=== PATIENT | female | born 1970 | race African-American/Black ===

== ENCOUNTER 2024-02-28 16:13 | Emergency (ER) | payer OTHER ==
[~2024-02-28] VITALS: Ht 162.6 cm; Wt 59.0 kg
[~2024-02-28 16:13] MED LIST: ALBU17AE27 IH
[2024-02-28 16:33] VITALS: TEMP 98.1
[2024-02-28] MEDS ORDERED: 0.9% SODIUM CHLORIDE 5 ML NEB SOLUTION NEB ONE (17:15)
[2024-02-28] MEDS: IPRATROPIUM BROMIDE 0.5 MG/2.5 ML NEB SOLUTION NEB ONE ×2 (17:16→17:17)
[2024-02-28] MEDS: ALBUTEROL SULFATE 2.5 MG/0.5 ML 5 ML NEB SOLUTION NEB ONE (17:17)
[2024-02-28] MEDS: ALBUTEROL SULFATE 2.5 MG/0.5 ML NEB SOLUTION NEB ONE (17:17)
[2024-02-28 17:18] VITALS: PULSE 102; RESP 22; O2SAT 95
[2024-02-28 17:55] LABS: BASOPHILS % (AUTO) 1.3 % (0.0-2.0); HEMATOCRIT 41.8 % (36-46); HEMOGLOBIN 13.1 g/dL (12.0-16.0); LYMPHOCYTES # (AUTO) 1.9 K/uL (1.0-4.8); LYMPHOCYTES % (AUTO) 39.3 % (22.0-44.0); MEAN CORPUSCULAR HEMOGLOBIN 22.6 pg (26.0-34.0); MEAN CORPUSCULAR HGB CONC 31.5 G/dL (31.0-37.0); MEAN CORPUSCULAR VOLUME 72 fL (80-100); MONOCYTES # (AUTO) 0.4 K/uL (0.1-1.0); MONOCYTES % (AUTO) 8.4 % (2.0-9.0); NEUTROPHILS # (AUTO) 2.2 K/uL (1.8-7.7); PLATELET COUNT (AUTO) 319 K/uL (150-450); RED BLOOD CELL COUNT(AUTO) 5.82 MIL/uL (4.00-5.20); RED CELL DISTRIBUTION WIDTH 14.7 % (11.5-14.5); WHITE BLOOD COUNT (AUTO) 4.9 K/uL (4.5-11.0)
[2024-02-28 18:03] LABS: ANION GAP 8 mmol/L (8-16); CALCIUM, TOTAL 9.2 mg/dL (8.8-10.5); CARBON DIOXIDE 27 mmol/L (22-29); CHLORIDE 100 mmol/L (98-107); CREATININE 0.87 mg/dL (0.60-1.30); GLOMERULAR FILTR. RATE CALC > 60 mL/min (>60); GLUCOSE,RANDOM 96 mg/dL (70-110); SODIUM SERUM 135 mmol/L (136-145); UREA NITROGEN, BLOOD 7 mg/dL (7-18)
[2024-02-28 18:09] LABS: TROPONIN I-HIGH SENSITIVITY 8 ng/L (<51)
[2024-02-28 18:22] VITALS: PULSE 99; RESP 22; O2SAT 98
[2024-02-28] MEDS: EPINEPHrine 1:1,000 [1 MG/ML] VIAL SQ ONE (18:34)
[2024-02-28] MEDS: MethylPREDNISolone SOD SUCC 125 MG/2 ML VIAL IVP ONE (18:34)
[2024-02-28 18:48] LABS: COVID AG,FIA SOURCE NASAL SWAB
[2024-02-28 19:10] LABS: SARS-COV2 (COVID) ANTIGEN,FIA Negative (Negative)
[2024-02-28 19:15] VITALS: BP 168/87; PULSE 81; RESP 16
[2024-02-28] MEDS ORDERED: GUAIFDM PO (20:08)
[2024-02-28] MEDS ORDERED: PRED-554 PO (20:08)
[2024-02-28] MEDS ORDERED: ALBU18HF12 IH (20:08)
[2024-02-28] MEDS ORDERED: BECL10.62 IH (20:08)
== END 2024-02-28 21:07 | disposition home or self-care (01) ==
LOC: EMS 16:13
DX: J45.901 Unspecified asthma with (acute) exacerbation (principal); R06.02 Shortness of breath; R07.9 Chest pain, unspecified; Z91.041 Radiographic dye allergy status; Z20.822 Contact with and (suspected) exposure to COVID-19
CPT/HCPCS: 99285; 96374; 71045; 87426; 80048; 84484; 85025; 36415; 94644; 93005; 96372; J0171; J2919; J7613

== ENCOUNTER 2024-10-12 16:19 | Emergency (ER) | payer OTHER ==
[~2024-10-12] VITALS: Ht 165.1 cm; Wt 63.6 kg
[~2024-10-12 16:19] MED LIST changes: +ALBU18HF12 IH; +BECL10.62 IH; +GUAIFDM PO; +PRED-554 PO
[2024-10-12] MEDS: IPRATROPIUM BROMIDE 0.5 MG/2.5 ML NEB SOLUTION NEB ONE (16:45)
[2024-10-12 16:46] VITALS: PULSE 80; RESP 18; O2SAT 98
[2024-10-12] MEDS: ALBUTEROL SULFATE 2.5 MG/0.5 ML NEB SOLUTION NEB ONE (16:46)
[2024-10-12] MEDS: ALBUTEROL SULFATE HFA 90 MCG/PUFF 8 GM INHALER IH ONE (16:48)
[2024-10-12 16:53] VITALS: PULSE 80; RESP 18; O2SAT 98
[2024-10-12 16:58] VITALS: PULSE 69; RESP 18; O2SAT 100
[2024-10-12 18:24] VITALS: BP 153/113; PULSE 81; RESP 20; TEMP 98.2; O2SAT 99
== END 2024-10-12 18:40 | disposition home or self-care (01) ==
LOC: EMS 16:19
DX: J45.901 Unspecified asthma with (acute) exacerbation (principal); Z91.041 Radiographic dye allergy status; Z79.51 Long term (current) use of inhaled steroids
CPT/HCPCS: 99285; 94640; J3535

== ENCOUNTER 2024-12-20 10:18 | Emergency (ER) | payer OTHER ==
[~2024-12-20] VITALS: Ht 165.1 cm; Wt 63.6 kg
[~2024-12-20 10:18] MED LIST changes: -GUAIFDM PO; -PRED-554 PO
[2024-12-20 10:21] VITALS: TEMP 98.1
[2024-12-20] MEDS: PredniSONE 20 MG TABLET PO ONE (10:47)
[2024-12-20 10:58] VITALS: PULSE 80; RESP 18; O2SAT 94
[2024-12-20] MEDS: ALBUTEROL SULFATE 2.5 MG/0.5 ML NEB SOLUTION NEB ONE ×2 (10:58→12:03)
[2024-12-20] MEDS: IPRATROPIUM BROMIDE 0.5 MG/2.5 ML NEB SOLUTION NEB ONE ×2 (10:58→12:03)
[2024-12-20 11:13] VITALS: PULSE 89; RESP 18; O2SAT 99
[2024-12-20 11:47] VITALS: BP 141/99; O2SAT 96
[2024-12-20 12:03] VITALS: PULSE 86; RESP 16; O2SAT 93
[2024-12-20] MEDS ORDERED: ALBU18HF12 IH (12:05)
[2024-12-20] MEDS ORDERED: PRED-554 PO (12:05)
[2024-12-20] MEDS ORDERED: ALBU2.5V39 NEB (12:05)
[2024-12-20 12:18] VITALS: PULSE 76; RESP 18; O2SAT 99
== END 2024-12-20 13:30 | disposition home or self-care (01) ==
LOC: EMS 10:20
DX: J45.901 Unspecified asthma with (acute) exacerbation (principal); Z88.8 Allergy status to other drugs, medicaments and biological substances; Z79.51 Long term (current) use of inhaled steroids; Z79.52 Long term (current) use of systemic steroids
CPT/HCPCS: 99285; 94640; J7512